=== PATIENT | female | born 1980 | race Caucasian/White ===

== ENCOUNTER → 2017-09-02 10:23 | Outpatient (CLI) | payer MEDICAID | END | disposition home or self-care (01) | LOC: D.US 10:23 | DX: I87.2 Venous insufficiency (chronic) (peripheral) (principal) ==

== ENCOUNTER 2017-11-14 10:56 | Day surgery (SDC) | payer MEDICAID ==
[~2017-11-14] VITALS: Ht 149.9 cm; Wt 63.5 kg
--- NOTE | ~2017-11-14 | OP ---
PATIENT NAME: JARRETT BENEDICT MEDICAL RECORD: [id number] LOCATION:D.OPS ADMISSION DATE: SURGEON: RICHARD OLIVER MD DATE OF OPERATION: 11/14/2017 PREOPERATIVE DIAGNOSES: 1. CEAP-5, venous insufficiency involving the left lower extremity. 2. Spina bifida. 3. Pathologic greater saphenous venous reflux, left lower extremity. POSTOPERATIVE DIAGNOSES: 1. CEAP-5, venous insufficiency involving the left lower extremity. 2. Spina bifida. 3. Pathologic greater saphenous venous reflux, left lower extremity. PROCEDURES: BNUS radiofrequency ablation of the left greater saphenous vein under ultrasonographic guidance, 5 cycles were used. A 32 cm greater saphenous vein was ablated. SURGEON: Richard Oliver MD HEALTH NURSE: None. BLOOD LOSS: Minimal. ANESTHESIA: General. COMPLICATIONS: None. The risks, possible complications and alternatives of procedure were explained to the patient. She and her family elected to proceed. OPERATIVE COURSE: The patient was conveyed to the operating room electively on 11/14/2017. General anesthesia was induced by the anesthesia staff. The left lower extremity was sterilely prepped and draped. Under ultrasonographic guidance, I percutaneously accessed the left greater saphenous vein in an antegrade fashion. A guidewire passed easily. A dilator sheath was then advanced over the wire. The dilator and wire were removed. Through the sheath, I advanced the radiofrequency catheter. Under ultrasonographic guidance, it was advanced to the junction of the greater saphenous vein and the common femoral vein. I then withdrew it 2 cm into the greater saphenous vein. Under ultrasonographic guidance, I then injected a tumescent crystalloid solution into the perivenular tissues in order to avoid injuring nervous structures. Subcutaneous Lovenox was given to help prevent a deep venous thrombosis. The radiofrequency catheter was activated twice. With each 7 cm pullback, it was activated an additional time. Endovascular hardware was removed after injecting a dilute foamed polidocanol solution up through the sheath. The closure consisted of a single horizontal mattress 3-0 Vicryl Rapide suture. A sterile dressing was applied. The patient was then extubated and conveyed to post-anesthesia care unit where she was in stable condition. She is going to be dismissed home. I will see her in the office in 2-3 weeks. 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
[~2017-11-14 10:56] MED LIST: ASPIRIN81 MG PO; NEXIUM20 MG PO; VESICARE5 MG PO
[2017-11-14 11:37] LABS: HEMATOCRIT 43.9 % (36.0-48.0); HEMOGLOBIN 14.4 g/dL (12-16); MCH 28.1 pg (26.0-34.0); MCHC 32.8 g/dL (31.0-37.0); MCV 85.6 fL (80.0-100.0); MEAN PLATELET VOLUME 9.9 fL (7.4-10.4); RBC 5.13 10x6/uL (4.00-5.40); RDW 13.5 % (11.5-14.5); WBC 7.5 10x3/uL (4.8-10.8)
[2017-11-14 12:08] VITALS: Ht 149.9 cm; Wt 63.5 kg
== END 2017-11-14 18:45 | disposition home or self-care (01) ==
LOC: D.OPS 10:56 → D.PAN 12:45 → D.OPS 18:45
PROVIDERS: Anesthesiology
DX: I87.2 Venous insufficiency (chronic) (peripheral) (principal); Q05.9 Spina bifida, unspecified; Z01.812 Encounter for preprocedural laboratory examination; K21.9 Gastro-esophageal reflux disease without esophagitis